=== PATIENT | female | born 1950 | race Caucasian/White ===

== ENCOUNTER 2018-05-12 13:20 | Outpatient (REF) | payer OTHER, SELFPAY | END 2018-05-12 13:40 | LOC: NCHCN 13:20 | PROVIDERS: Visit Provider Family Medicine | DX: Z85.43 Personal history of malignant neoplasm of ovary (principal) | CPT/HCPCS: 86304 ==

== ENCOUNTER 2018-09-27 10:28 | Outpatient (REF) | payer OTHER, SELFPAY ==
[2018-09-27 21:32] LABS: Abs Immature Grans 0.03 k/cumm (0.0-0.09); Absolute Basophil Count 0.05 k/cumm (0.0-0.2); Absolute Lymphocyte Count 1.94 k/cumm (1.2-3.4); Absolute Monocyte Count 0.68 k/cumm (0.11-0.7); Basophils % 0.5; Eosinophils % 1.1; HCT 42.6 % (36.0-46.0); HGB 13.8 g/dL (12.0-15.5); Immature Grans % 0.3; Lymphocytes % 20.9; Mean Corp. HGB Concentration 32.4 g/dL (32.0-36.0); Mean Corpuscular Hemoglobin 29.7 pg (27.0-33.0); Mean Corpuscular Volume 91.6 fL (80-95); Monocytes % 7.3; Neutrophils % 69.9; Platelet Count 240 x1000/uL (130-400); RBC 4.65 m/cumm (4.00-5.20); RBC Distribution Width 13.2 % (11.7-14.6)
[2018-09-27 21:46] LABS: Iron 79 ug/dL (50-175); Total Iron Binding Capacity 273 ug/dL (250-450); Transferrin Sat 29 % (15-50)
[2018-09-27 21:58] LABS: ALT 33 U/L (12-78); AST 16 U/L (15-37); Albumin 3.9 g/dL (3.4-5.0); Alkaline Phosphatase 58 U/L (46-116); Anion Gap 10.3 mmol/L (3-11); BUN 18 mg/dL (7-18); Bilirubin, Total 0.3 mg/dL (0.2-1.0); CO2 28.7 mmol/L (21.0-32.0); CREATININE 1.09 mg/dL (0.55-1.02); Calcium 9.2 mg/dL (8.5-10.1); Chloride 104 mmol/L (98-107); Cholesterol 235 mg/dL (50-200); Estimated GFR 49.62 (mL/min/1.73m2); Ferritin 59 ng/mL (8-388); Glucose 82 mg/dL (70-100); HDL Cholesterol 72 mg/dL (40-60); LDL CHOLESTEROL 142 mg/dL (<100); Magnesium 1.9 mg/dL (1.8-2.4); Potassium 4.2 mmol/L (3.5-5.1); Sodium 143 mmol/L (136-145); TSH (W/Ref FT4) 6.46 uIU/mL (0.358-3.74); Total Protein 6.9 g/dL (6.4-8.2); Triglyceride 75 mg/dL (30-150)
[2018-09-29 12:15] LABS: CA 125 12 U/mL (0-30)
== END 2018-09-27 10:48 ==
LOC: NCHCN 10:28
PROVIDERS: PCP Nurse Practitioner; Visit Provider Nurse Practitioner
DX: R42 Dizziness and giddiness (principal); Z85.43 Personal history of malignant neoplasm of ovary; Z13.220 Encounter for screening for lipoid disorders
CPT/HCPCS: 80053; 80061; 83721; 86304; 82728; 83540; 83550; 83735; 84439; 84443; 85025

== ENCOUNTER 2018-10-04 02:26 | Outpatient (CLI) | payer OTHER, SELFPAY ==
--- NOTE | 2018-10-11 08:13 | HOLTER_ITS ---
HOLTER MONITOR DATE OF DICTATION October 09, 2018 TIME OF RECORDING October 04, 2018 DATE OF ANALYSIS October 07, 2018 REFERRING PHYSICIAN Petrona Gupta N.P. INDICATION Dizziness. FINDINGS 1. Baseline sinus rhythm, 46-113 beats per minute, average 67 beats per minute. 2. Rare PAC, 75/2 days, 6 SVT runs, maximally 6 beats, maximally 157 beats per minute, no AF. 3. Rare PVC, 13/2 days, 1 couplet, no VT. 4. No significant pauses. 5. No symptoms recorded. Madisyn Diehl M.D. KOREY/emelyn T- 10/11/2018
== END 2018-10-04 02:46 ==
PROVIDERS: PCP Nurse Practitioner; Visit Provider Nurse Practitioner
DX: R42 Dizziness and giddiness (principal); I49.1 Atrial premature depolarization; I49.3 Ventricular premature depolarization
CPT/HCPCS: 93225

== ENCOUNTER 2018-10-07 08:51 | Outpatient (CLI) | payer OTHER, SELFPAY | END 2018-10-07 09:11 | PROVIDERS: PCP Nurse Practitioner; Visit Provider Nurse Practitioner | DX: R42 Dizziness and giddiness (principal); I49.1 Atrial premature depolarization; I49.3 Ventricular premature depolarization | CPT/HCPCS: 93226 ==

== ENCOUNTER 2018-10-09 21:35 | Outpatient (CLI) | payer OTHER, SELFPAY | END 2018-10-09 21:55 | PROVIDERS: PCP Nurse Practitioner; Referring Provider Nurse Practitioner; Visit Provider Internal Medicine Cardiovascular Disease | DX: R42 Dizziness and giddiness (principal); I49.1 Atrial premature depolarization; I49.3 Ventricular premature depolarization | CPT/HCPCS: 93227 ==

== ENCOUNTER 2018-12-09 10:33 | Outpatient (REF) | payer OTHER, SELFPAY ==
[2018-12-09 13:25] LABS: HGB 12.3 g/dL (12.0-15.5); Mean Corp. HGB Concentration 31.5 g/dL (32.0-36.0); Mean Corpuscular Hemoglobin 29.3 pg (27.0-33.0); Mean Corpuscular Volume 92.9 fL (80-95); Platelet Count 231 x1000/uL (130-400); RBC Distribution Width 13.2 % (11.7-14.6); White Blood Cell Count 4.15 k/cumm (4.4-10.8)
[2018-12-09 13:30] LABS: ALT 29 U/L (12-78); AST 21 U/L (15-37); Albumin 3.4 g/dL (3.4-5.0); Alkaline Phosphatase 49 U/L (46-116); Anion Gap 8.5 mmol/L (3-11); BUN 16 mg/dL (7-18); Bilirubin, Total 0.4 mg/dL (0.2-1.0); CO2 26.5 mmol/L (21.0-32.0); CREATININE 0.94 mg/dL (0.55-1.02); Calcium 8.6 mg/dL (8.5-10.1); Chloride 106 mmol/L (98-107); Cholesterol 219 mg/dL (50-200); Estimated GFR 58.87 (mL/min/1.73m2); Glucose 96 mg/dL (70-100); HDL Cholesterol 72 mg/dL (40-60); LDL CHOLESTEROL 136 mg/dL (<100); Potassium 4.4 mmol/L (3.5-5.1); Sodium 141 mmol/L (136-145); Total Protein 6.1 g/dL (6.4-8.2); Triglyceride 56 mg/dL (30-150)
[2018-12-10 10:08] LABS: CA 125 9 U/mL (0-30)
== END 2018-12-09 10:53 ==
LOC: NCHCN 10:33
PROVIDERS: PCP Family Medicine; Visit Provider Family Medicine
DX: M79.7 Fibromyalgia (principal); Z13.6 Encounter for screening for cardiovascular disorders; Z85.43 Personal history of malignant neoplasm of ovary; Z15.01 Genetic susceptibility to malignant neoplasm of breast
CPT/HCPCS: 80053; 80061; 83721; 85027; 86304

== ENCOUNTER 2019-01-06 00:53 | Outpatient (CLI) | payer OTHER, SELFPAY ==
--- NOTE | 2019-01-06 12:37 | DI.MAMMO_ITS ---
SYMPTOMS/DIAGNOSIS: SCREENING, GENETIC SUSCEPTIBILITY TO MALIGNANT NEOPLASM OF BREAST, Z15.01 MAMMOGRAMS: Mammograms were interpreted according to the usual protocol including computer analysis with CAD system, tomosynthesis and C view imaging. The breast tissue is composed of scattered fibroglandular densities. There is no dominant mass. There are no suspicious calcifications and there has been no significant interval change when compared with prior images. SUMMARY: No evidence of malignancy, category 1. Yearly screening mammography is recommended. Breast density category B. SA ASSESSMENT OF FINDINGS: Negative. Category 1. Patient will receive a letter notifying them of these results. BI-RADS category B. There are scattered areas of fibroglandular density.
== END 2019-01-06 01:13 ==
PROVIDERS: PCP Nurse Practitioner Family; Visit Provider Nurse Practitioner Family
DX: Z12.31 Encounter for screening mammogram for malignant neoplasm of breast (principal); Z15.01 Genetic susceptibility to malignant neoplasm of breast
CPT/HCPCS: 77063; 77067

== ENCOUNTER 2019-06-14 10:07 | Outpatient (REF) | payer OTHER, SELFPAY ==
[2019-06-14 13:00] LABS: TSH (W/Ref FT4) 6.11 uIU/mL (0.36-3.74)
[2019-06-14 13:19] LABS: FREE T4 0.79 ng/dL (0.76-1.46)
[2019-06-15 11:32] LABS: CA 125 12 U/mL (0-30)
== END 2019-06-14 10:27 ==
LOC: NCHCN 10:07
PROVIDERS: PCP Nurse Practitioner Family; Visit Provider Family Medicine
DX: Z85.43 Personal history of malignant neoplasm of ovary (principal); Z15.01 Genetic susceptibility to malignant neoplasm of breast; E03.9 Hypothyroidism, unspecified
CPT/HCPCS: 86304; 84439; 84443

== ENCOUNTER 2019-09-29 11:47 | Outpatient (REF) | payer OTHER, SELFPAY | END 2019-09-29 12:07 | LOC: NCHCN 11:47 | PROVIDERS: PCP Nurse Practitioner Family; Visit Provider Nurse Practitioner Family | DX: E03.9 Hypothyroidism, unspecified (principal) | CPT/HCPCS: 84443 ==

== ENCOUNTER 2019-10-20 11:21 | Day surgery (SDC) | payer OTHER, SELFPAY ==
[2019-10-20 11:26] VITALS: BP 122/66; PULSE 72; RESP 18; TEMP 36.2; O2SAT 100
--- NOTE | 2019-10-20 11:38 | ED.GENADUL_ITS ---
Discharge Plan Disposition Patient Disposition: [facility] DAY SURGERY UNIT Condition: Good Discharge Details Chief Complaint: Orthopedic Clinical Impression: Closed fracture of right wrist Primary Care Provider: Helen Simeon ED Provider: Jorge Helms Home Meds and New Rx's Prescriptions: No Action ibuprofen 600 MG tablet 600 mg PO Q6H PRN RF: 0 conjugated estrogens [Premarin] 45 GM cream 1 ea Topical PRN PRNRF: 0 alendronate [Fosamax] 70 mg Tablet 30 mg PO RF: 0 Medical Decision Making 69-year-old female slipped on icy slope, landing on outstretched hand. She presents with right wrist deformity. She is did not have any other injury and her review of systems is unremarkable. Her exam reveals normal pulse, motor, sensory exam with obvious deformity of the right distal radius. Patient had ibuprofen prior to transport. Ice and splint applied, patient referred for x-ray. She has a closed, comminuted intra-articular fracture of the distal radius and ulnar styloid fracture. Case discussed with on-call orthopedist, Dr. Hickman who will attend to the patient in day surgery for close reduction. HPI General Mode of arrival: ambulatory . Date/Time Provider Initiated Documentation: 10/20/19 11:27 . Information obtained by: patient . History of Present Illness 69 year old F presents to the emergency department with the chief complaint of Fall and right wrist pain, no other injury, described as moderate, Quality is described as dull, and is localized to the right and upper extremity. Patient reports no radiation. Patient started experiencing this minute(s) and it has been constant. Rest improves symptom(s), Movement worsens symptoms . Patient notes no other symptoms.; denies chest pain, headaches, syncope and weakness. Patient did receive the following treatments prior to arrival, cold therapy and splint Related Data Home Medications Medication Instructions Recorded Confirmed conjugated estrogens [Premarin] 1 ea TOPICAL PRN PRN 06/08/13 09/01/14 ibuprofen 600 mg PO Q6H PRN tab-cap 05/01/17 alendronate [Fosamax] 30 mg PO 10/20/19 Allergies Allergy/AdvReac Type Severity Reaction Status Date / Time clindamycin HCl Allergy Intermediate Skin Rash Unverified 05/22/17 10:50 [From Cleocin] Lincosamides Allergy Unknown Unverified 05/22/17 10:50 General Stated Complaint: Orthopedic ELIOT: 4 Review of Systems Narrative: No loss of consciousness. No headache, no neck pain, no back or chest pain. 6 systems reviewed and otherwise negative. No numbness or tingling. [facility] Social History Smoking/Tobacco Use Status: Never Drug use: Never Substance use type: does not use Do you feel safe at home: Yes Do you feel safe in your relationship?: Yes Exam Narrative Exam Narrative: GEN: awake, alert, oriented 3. Pleasant, well groomed, interactive. HEAD: Normocephalic, atraumatic ENT: Mucous membranes moist, oropharynx unremarkable, External ear exam unremarkable EYES: PERRL, EOMI NECK: Full ROM, no TAYLOR, no menigismus, nontender back: Nontender CHEST/RESP: Nontender, clear to auscultation bilateral, no wheeze/rhonchi/rales CARDIOVASCULAR: RRR, no murmur, rub sue. 2+ Rad pulse bilateral EXT: Right distal radius mild dorsal deformity, tenderness to palpation. Patient able to demonstrate normal movement by making the okay sign, crossing long finger over index, touching thumb to pinky. Sensation intact throat Neuro: Grossly normal neurologic exam, conversant, interactive. Psych: Speech fluent, thoughts congruent, affect normal Course Vital Signs Vital signs: Vital Signs Temperature 36.2 C L 10/20/19 11:26 Pulse 72 10/20/19 11:26 Respiratory Rate 18 10/20/19 11:26 Blood Pressure 122/66 10/20/19 11:26 Pulse Oximetry 100 10/20/19 11:26 Temperature 36.2 C L 10/20/19 11:26 Temperature Source Tympanic 10/20/19 11:26 Pulse 72 10/20/19 11:26 Respiratory Rate 18 10/20/19 11:26 Respiratory Effort Non-Labored 10/20/19 11:28 Blood Pressure 122/66 10/20/19 11:26 Blood Pressure Position Sitting 10/20/19 11:26 Pulse Oximetry 100 10/20/19 11:26 Oxygen Delivery Method Room Air 10/20/19 11:26 Oxygen Flow Rate 0 10/20/19 11:26 Pain Level 9 10/20/19 11:26
--- NOTE | 2019-10-20 11:56 | DI.RAD_ITS ---
EXAM: XR WRIST RT COMPLETE CLINICAL HISTORY: FALL, WRIST PAIN. TECHNIQUE: 2D digital imaging was performed. COMPARISON: No exams were available for comparison FINDINGS: There is a comminuted fracture of the distal radius. A component of the fracture extends transversely through the metaphysis. There is a coronally oriented fracture extending to the articular surface. T here is some dorsal angulation. There is some separation and mild depression at the articular surface . The ulnar styloid is also fractured and mildly displaced. Degenerative changes are seen in the 1st carpal metacarpal joint. BONES: No acute fracture is present. No bony destructive lesion is seen. JOINTS: The carpal bones are normally aligned. SOFT TISSUE: Normal. IMPRESSION: Comminuted intra-articular fracture of the distal radius and ulnar styloid fracture. DATA REPOSITORY: RADIATION DOSE DELIVERED:
[2019-10-20] MEDS: Normal Saline Flush 10 ML SYR IVP (13:00)
[2019-10-20 13:21] VITALS: BP 128/62; PULSE 58; RESP 18; TEMP 36.5; O2SAT 99
[2019-10-20 14:46] VITALS: BP 122/64; PULSE 68; RESP 17; TEMP 36.4; O2SAT 98
[2019-10-20 15:00] VITALS: BP 122/64; PULSE 68; RESP 17; TEMP 36.4; O2SAT 98
--- NOTE | 2019-10-20 16:25 | DI.RAD_ITS ---
EXAM: XR WRIST RT LIMITED CLINICAL HISTORY: RIGHT WRIST FRACTURE. TECHNIQUE: 2D digital imaging was performed. COMPARISON: XR WRIST RT COMPLETE from 10/20/2019 FINDINGS: BONES: The distal radial fracture has been reduced with alignment near anatomic. The ulnar styloid p rocess fracture appears stable. The patient's wrist is in a cast. No bony destructive lesion is see n. JOINTS: The carpal bones are normally aligned. SOFT TISSUE: Normal. IMPRESSION: Reduced distal radial fracture. Stable ulnar styloid process fracture. DATA REPOSITORY: RADIATION DOSE DELIVERED:
--- NOTE | 2019-10-20 16:25 | W.PM.DSUDISC ---
Discharge Plan Disposition Patient Disposition: HOME Condition: Stable Discharge Details Chief Complaint: Orthopedic Clinical Impression: Closed fracture of right wrist Reason For Visit: Right wrist fracture Attending Provider: Lucas Hickman Primary Care Provider: Helen Simeon ED Provider: Jorge Helms Home Meds and New Rx's Prescriptions: New oxycodone 5 mg tablet 5 - 10 mg PO Q4H PRN (Reason: moderate to severe pain) Qty: 5 RF: 0 oxycodone 5 mg tablet 5 mg PO Q4H PRN (Reason: moderate to severe pain) Qty: 5 RF: 0 Continued ibuprofen 600 MG tablet 600 mg PO Q6H PRN RF: 0 Premarin 45 GM cream 1 ea Topical PRN PRNRF: 0 alendronate [Fosamax] 70 mg Tablet 30 mg PO RF: 0 levothyroxine 50 mcg Tablet DAILY AM RF: 0 ibuprofen [Advil] 200 MG tablet 600 - 800 mg PO BID Qty: 30 RF: 0 Discharge Instructions Additional Instructions: Surgery: Right wrist closed reduction Activity: Nonweightbearing in splint at all times. Recommend elevation at the level of the heart to minimize swelling and discomfort. Daily range of motion remember to wiggle your thumb and all fingers to prevent stiffness and encourage circulation. Prescriptions: Ibuprofen/Motrin [id number] as needed Oxycodone 5 mg take 1 every 4-6 hours as needed for severe pain You may use [id number] Tylenol (acetaminophen) as needed for mild pain. These pain medications may be taken all at once or in different combinations as needed. Also, recommend Colace (docusate) as a stool softener as surgery and pain medicine cause constipation. Dressings: Leave splint and dressing in place until follow-up. Keep clean and dry at all times. Follow-up: 10-[address] Hickman at [facility] orthopedics Please call the office during business hours with any questions or concerns. Let us know right away if you develop any redness, drainage, fevers, chest pain, or trouble breathing. Do not drink alcohol or drive for at least 24 hours after anesthesia. Stand Alone Forms: Rossana Givens (LETYU) Referrals: Lucas Hickman MD [ [facility] STAFF PHYSICIAN] - Discharge Orders Discharge Orders: Discharge Order (Routine); Ordered 10/20/19 Ordered By: Lucas Hickman DS: Diagnosis Discharge Diagnosis (1) Closed fracture of right wrist: Status: Acute
--- NOTE | 2019-10-20 16:53 | ROE_ITS ---
Date of service: 10/20/19 Time of Service: 16:53 Operative Note Operative Note DATE OF PROCEDURE: 10/20/19 PRE-OP DIAGNOSIS: Right displaced distal radius fracture Right ulnar styloid fracture POST-OP DIAGNOSIS: same PROCEDURE: Right distal radius closed reduction with manipulation and splinting SURGEON: Lucas Hickman ROUTE RIDER SUPERVISOR: None None ANESTHESIA: regional ESTIMATED BLOOD LOSS: 0 COMPLICATIONS: None Patient was transported to: PACU Patient's condition: stable Indications: Please see complete medical record for details. Procedure Description: The patient was taken to the recovery room and t regional anesthesia was induced. Preoperative antibiotics were omitted. The correct patient, procedure, and side of the procedure were all verified prior to beginning the procedure. A plaster sugar tong splint was laid out. The patient's block was tested she was found to have good analgesia about the distal radius. Using my thigh for traction her elbow was was brought around my thigh and 90 degrees of flexion and the deformity was slightly exaggerated and then gently corrected using a volarly directed force as well as direct pressure over the distal fracture. There is a palpable confirmation of proper reduction. The reduction was held and maintained carefully compared with contralateral wrist and felt to look anatomic. A well molded with a three-point mold plaster sugar tong splint was appropriately placed for immobilization and maintenance of reduction. Postoperative x-rays confirmed excellent reduction of the previously significantly dorsally angulated distal radius fracture. The patient tolerated procedure well was transferred to day surgery unit in stable condition.
--- NOTE | 2019-10-20 17:02 | OCONE_ITS ---
Date of service: 10/20/19 Time of Service: 16:57 History of Present Illness History of Present Illness Chief Complaint: Right wrist pain Narrative: Chief Complaint: Right wrist pain HPI: 69-year-old female status post mechanical slip and fall on the ice today onto outstretched right wrist. Significant sudden onset severe right wrist pain and deformity. Presents emergency department found to have angulated space distal radius fracture. No pre-existing wrist pain. Did not hit her head or lose consciousness. No other orthopedic complaints at this time. PMH: Negative allergies: Clindamycin may cause rash FH: non-contributory SH: hand dominance: Right occupation: Retired smoke cigarettes: No Consult Reason Right distal radius reduction Assessment and Plan Assessment and plan (1) Closed fracture of right wrist: Status: Acute Assessment and plan: 69-year-old female with right dorsally angulated displaced distal radius and ulnar styloid fractures sustained from mechanical fall today Decision to proceed with closed reduction under regional anesthesia today The risks, benefits, and alternatives were thoroughly discussed. Patient was counseled regarding pain management, expected postoperative course, and recovery timeline. All questions were answered. Informed consent was obtained. The patient and her agree and understand treatment plan. Follow up 10-14 days after surgery. Will call if any changes or concerns. Qualifiers: Encounter type: initial encounter Qualified Code(s): S62.101A - Fracture of unspecified carpal bone, right wrist, initial encounter for closed fracture Review of Systems Constitutional Constitutional: Denies chills and Denies fever(s) Eyes Eyes: Denies diplopia and Denies loss of vision ENT Ears, Nose, Mouth, and Throat: Denies dental pain and Denies other (cavities) Cardiovascular Cardiovascular: Denies chest pain with activity, Denies irregular heart rhythm and Denies dyspnea Respiratory Respiratory: Denies cough and Denies dyspnea Gastrointestinal Gastrointestinal: Denies nausea and Denies vomiting Musculoskeletal Musculoskeletal: Reports as per HPI Integumentary/Breasts Skin/Breast: Denies rash and Denies wounds Neurologic Neurologic: Reports as per HPI and Denies loss of vision Psychiatric Psychiatric: Denies anxiety and Denies depression Hematologic/Lymphatic Hematologic/Lymphatic: Denies easy bleeding and Denies easy bruising Allergic/Immunologic Allergic/Immunologic: Reports as per HPI [facility] Social History Smoking/Tobacco Use Status: Never Drug use: Never Substance use type: does not use Do you feel safe at home: Yes Do you feel safe in your relationship?: Yes Exam Const General: cooperative, comfortable and no acute distress Orientation: alert, awake and not confused Limitations: mental status not altered and no language barrier HENMT Head: normocephalic and atraumatic Neck Neck: normal visual inspection and full ROM Resp Effort & Inspection: normal respiratory effort, able to speak in complete sentences, no audible wheezes and no grunting General: deferred Skin General skin exam: no rashes or lesions noted Neuro General: patient alert, patient awake and patient oriented x3 Cognition: normal cognition Speech: speech normal Extrem Other: Right wrist: Skin intact. All compartments soft. 2+ radial pulse regular rate and rhythm Dorsal prominence deformity about the distal radius Demonstrates intact motor flexor extenders thumb and all digits Prior to regional anesthesia block denies any numbness or tingling paresthesias. At this time has moderate paresthesias distally. Psych Appearance: grossly normal Mental Status: mental status grossly normal Speech and Movement: speech and movement normal Affect: normal affect Attitude: cooperative Results Last Vital Signs Temp 97.2 F L 10/20/19 11:26 Pulse 72 10/20/19 11:26 Resp 18 10/20/19 11:26 BP 122/66 10/20/19 11:26 Pulse Ox 100 10/20/19 11:26 Imaging Imaging Studies: Right wrist x-rays and report independently reviewed: Extra- articular approximately 30 degrees dorsally angulated distal radius fracture with ulnar styloid fracture
== END 2019-10-20 17:10 | disposition home or self-care (01) ==
LOC: ER 14:25 → DSU 14:53
PROVIDERS: Emergency Provider Emergency Medicine; PCP Nurse Practitioner Family; Visit Provider Student in an Organized Health Care Education/Training Program
PROC: 0PSHXZZ Reposition Right Radius, External Approach (ICD-10-PCS; CPT 25605; principal; 2019-10-20 15:00)
DX: S52.591A Other fractures of lower end of right radius, initial encounter for closed fracture (principal); S52.614A Nondisplaced fracture of right ulna styloid process, initial encounter for closed fracture; W00.0XXA Fall on same level due to ice and snow, initial encounter
CPT/HCPCS: 25605; 99254; 99285; 73100; 73110; 99284

== ENCOUNTER 2019-11-01 11:31 | Outpatient (CLI) | payer OTHER, SELFPAY ==
--- NOTE | 2019-11-01 10:42 | DI.RAD_ITS ---
EXAM: XR WRIST RT LIMITED CLINICAL HISTORY: Follow up TECHNIQUE: COMPARISON: XR WRIST RT LIMITED from 10/20/2019 FINDINGS: Two views were obtained. Note is again made of previously described fractures distal radius and ulna r styloid with no gross interval change in alignment the fracture fragments comparison with previous examination of October 19. The wrist is in a splint. IMPRESSION:
== END 2019-11-01 11:51 ==
PROVIDERS: PCP Nurse Practitioner Family; Visit Provider Student in an Organized Health Care Education/Training Program
DX: S52.511D Displaced fracture of right radial styloid process, subsequent encounter for closed fracture with routine healing (principal); S52.611D Displaced fracture of right ulna styloid process, subsequent encounter for closed fracture with routine healing
CPT/HCPCS: 73100

== ENCOUNTER 2019-11-29 10:22 | Outpatient (CLI) | payer OTHER, SELFPAY ==
--- NOTE | 2019-11-29 10:00 | DI.RAD_ITS ---
EXAM: XR WRIST RT COMPLETE CLINICAL HISTORY: f/u fracture TECHNIQUE: 2D digital imaging was performed. COMPARISON: XR WRIST RT LIMITED from 11/01/2019 FINDINGS: The cast has been removed. There is increased callus formation at the distal radial fracture site in dicates some interval healing. The ulnar styloid fracture is unchanged in position. Degenerative ch anges of 1st carpometacarpal joint are again noted. IMPRESSION: Healing fracture of the distal radius.
== END 2019-11-29 10:42 ==
PROVIDERS: PCP Nurse Practitioner Family; Visit Provider Student in an Organized Health Care Education/Training Program
DX: S52.511D Displaced fracture of right radial styloid process, subsequent encounter for closed fracture with routine healing (principal); S52.611D Displaced fracture of right ulna styloid process, subsequent encounter for closed fracture with routine healing; M18.11 Unilateral primary osteoarthritis of first carpometacarpal joint, right hand
CPT/HCPCS: 73110

== ENCOUNTER 2019-12-30 12:48 | Outpatient (REF) | payer OTHER, SELFPAY ==
[2020-01-02 10:58] LABS: CA 125 11 U/mL (<30)
== END 2019-12-30 13:08 ==
LOC: NCHCN 12:48
PROVIDERS: PCP Nurse Practitioner Family; Visit Provider Nurse Practitioner Family
DX: Z85.43 Personal history of malignant neoplasm of ovary (principal)
CPT/HCPCS: 86304

== ENCOUNTER 2020-01-10 10:19 | Outpatient (CLI) | payer OTHER, SELFPAY ==
--- NOTE | 2020-01-10 10:00 | DI.RAD_ITS ---
EXAM: XR WRIST RT LIMITED CLINICAL HISTORY: fu fracture TECHNIQUE: COMPARISON: CR XR WRIST RT COMPLETE from 11/29/2019 FINDINGS: Two views were obtained. Previously described fracture of the distal radius and ulnar styloid again noted, no interval change in alignment in comparison with examination of November 28. The radial frac ture appears essentially healed, ulnar styloid fracture is un healed. IMPRESSION:
== END 2020-01-10 10:39 ==
PROVIDERS: PCP Nurse Practitioner Family; Referring Provider Nurse Practitioner Family; Visit Provider Student in an Organized Health Care Education/Training Program
DX: S52.511D Displaced fracture of right radial styloid process, subsequent encounter for closed fracture with routine healing (principal); S52.611D Displaced fracture of right ulna styloid process, subsequent encounter for closed fracture with routine healing
CPT/HCPCS: 73100

== ENCOUNTER 2020-01-26 03:16 | Outpatient (CLI) | payer OTHER, SELFPAY ==
--- NOTE | 2020-01-26 12:33 | DI.MAMMO_ITS ---
EXAM: MAMMO SCREENING CLINICAL HISTORY: SCREENING, Z12.39 TECHNIQUE: Mammograms were interpreted according to the usual protocol including computer analysis w ith CAD system, tomosynthesis and C-view imaging. COMPARISON: 2009 through 2018 FINDINGS: The breasts are composed of scattered fibroglandular densities, Breast Density category B. No suspicious masses or suspicious microcalcifications are seen. No skin thickening or abnormal axillary lymph nodes are seen. There has been no significant change from prior exams. IMPRESSION: BI-RADS Category 1 - Negative Yearly screening mammography is recommended. Breast Density Category B, scattered fibroglandular densities.
--- NOTE | 2020-01-26 13:09 | DI.DEXA_ITS ---
EXAM: XR DEXA BONE DENSITY W/WO JOSIE CLINICAL HISTORY: OSTEOPOROSIS, M81.0 TECHNIQUE: H[employer] Horizon C densitometer. COMPARISON: DX DEXA BONE DENSITY WITH JOSIE from 06/02/2017 FINDINGS: The lateral view of the thoracic and lumbar spine shows no evidence of compression fractures. There is eccenuation of the normal thoracic kyphosis secondary to degenerative disc changes. The bone mineral density measurements of the lumbar spine correspond to a total T-score of -2.7, cons istent with osteoporosis. There has been a 3.7 percent increase in spinal bone density when compared with 2017 but an overall 3.9 percent decrease when compared with the baseline exam of 2004. The bone mineral density measurements of the left hip correspond to a total T-score of -1.8 and a fem oral neck T-score of -2.3, consistent with osteopenia. This represents a 5.4 percent increase when co mpared with 2017 and not significantly changed from the 2005 exam. The forearm was not scanned due to history of previous fracture. IMPRESSION: Overall stable osteopenia of the left hip. Osteopenia of the lumbar spine with mild decrease in ayo ne density when compared with baseline exam.
== END 2020-01-26 03:36 ==
PROVIDERS: PCP Nurse Practitioner Family
DX: Z12.31 Encounter for screening mammogram for malignant neoplasm of breast (principal); M85.88 Other specified disorders of bone density and structure, other site; M81.0 Age-related osteoporosis without current pathological fracture
CPT/HCPCS: 77063; 77067; 77080

== ENCOUNTER 2020-08-09 12:32 | Outpatient (REF) | payer OTHER, SELFPAY ==
[2020-08-09 22:55] LABS: Calculated LDL 168 mg/dL (<100); Cholesterol 267 mg/dL (<200); HDL Cholesterol 87 mg/dL (40-60); TSH 4.27 uIU/mL (0.36-3.74); Triglyceride 64 mg/dL (<150)
[2020-08-09 23:23] LABS: FREE T4 0.97 ng/dL (0.76-1.46)
[2020-08-13 09:28] LABS: CA 125 13 U/mL (<30)
== END 2020-08-09 12:52 ==
LOC: NCHCN 12:32
PROVIDERS: PCP Nurse Practitioner Family; Visit Provider Nurse Practitioner Family
DX: E03.9 Hypothyroidism, unspecified (principal); E78.5 Hyperlipidemia, unspecified; Z15.01 Genetic susceptibility to malignant neoplasm of breast
CPT/HCPCS: 80061; 86304; 84439; 84443

== ENCOUNTER 2021-01-29 01:34 | Outpatient (CLI) | payer OTHER, SELFPAY ==
--- NOTE | 2021-01-29 | DI.MAMMO_ITS ---
Exam(s) MAMMO SCREENING EXAM: MAMMO SCREENING CLINICAL HISTORY: SCREENING,Z12.31,FAMILY H/O BREAST CA TECHNIQUE: Mammograms were interpreted according to the usual protocol including computer analysis w [employer] CAD system, tomosynthesis and C-view imaging. COMPARISON: FINDINGS: The breasts are of moderate density with fairly symmetrical distribution of fibroglandular tissue. N o dominant mass or clumped microcalcification is identified in either breast. The current examinatio n is compared with previous examinations including January 2020 and there is question of increased promi nence of a focal area of asymmetric density with a vaguely nodular contour projected in the lateral c entral portion of right breast on CC view. Additionally, on the MLO view, there are a couple of ques tionable areas of increased asymmetric radiodensity projected in the central superior portion of the breast. Additional evaluation is with spot compression views recommended to evaluate these findings, breast ultrasound may be indicated as well. No other significant change seen. IMPRESSION: Additional mammographic views of the right breast requested as described above. Breast ultrasound ma y be indicated as well depending on the results of the additional mammographic views. BI-RADS Category 0 - Assessment Incomplete: Need additional imaging evaluation Breast Density - Category B - Scattered areas of fibroglandular density
== END 2021-01-29 01:54 ==
DX: Z12.31 Encounter for screening mammogram for malignant neoplasm of breast (principal); R92.8 Other abnormal and inconclusive findings on diagnostic imaging of breast; Z80.3 Family history of malignant neoplasm of breast
CPT/HCPCS: 77063; 77067

== ENCOUNTER 2021-02-07 09:12 | Outpatient (REF) | payer OTHER, SELFPAY ==
[2021-02-07 13:47] LABS: Calculated LDL 143 mg/dL (<100); Cholesterol 231 mg/dL (<200); HDL Cholesterol 75 mg/dL (40-60); TSH (W/Ref FT4) 0.89 uIU/mL (0.36-3.74); Triglyceride 69 mg/dL (<150)
[2021-02-08 10:42] LABS: CA 125 10 U/mL (<30)
== END 2021-02-07 09:13 | disposition home or self-care (01) ==
LOC: NCHCN 09:12
PROVIDERS: Visit Provider Family Medicine
DX: E78.5 Hyperlipidemia, unspecified (principal); E02 Subclinical iodine-deficiency hypothyroidism; Z85.43 Personal history of malignant neoplasm of ovary
CPT/HCPCS: 80061; 86304; 84443

== ENCOUNTER 2021-02-08 02:42 | Outpatient (CLI) | payer OTHER, SELFPAY ==
--- NOTE | 2021-02-08 | DI.US_ITS ---
Exam(s) MG MAMMO SCREEN CALL BACK UNI US BREAST RT LIMITED EXAM: MG MAMMO SCREEN CALL BACK UNI CLINICAL HISTORY: F/U ABNL MAMMO, ASYMMETRIC DENSITY RT BREAST TECHNIQUE: Mammograms were interpreted according to the usual protocol including computer analysis w ith CAD system, tomosynthesis and C-view imaging. COMPARISON: FINDINGS: Additional mammographic views of the right breast and right breast ultrasound are interpreted conjunc tion. These examinations were obtained to evaluate areas of focal asymmetric density in the upper ou ter quadrant of the right breast seen on recent mammogram. Additional mammographic views fail to donny w a discrete mass. Breast ultrasound shows no evidence of a mass or cyst. IMPRESSION: No specific evidence of malignancy at this time. Follow-up unilateral right breast mammogram recomme nded in 6 months. BI-RADS Category 3 - 6 month - Probably Benign Finding: Recommend follow-up mammography in 6 months Breast Density - Category B - Scattered areas of fibroglandular density
== END 2021-02-08 03:02 ==
DX: Z12.31 Encounter for screening mammogram for malignant neoplasm of breast (principal); N64.89 Other specified disorders of breast; R92.8 Other abnormal and inconclusive findings on diagnostic imaging of breast
CPT/HCPCS: 76642; 77063; 77067

== ENCOUNTER 2021-03-21 00:40 | Emergency (ER) | payer OTHER, SELFPAY ==
--- NOTE | 2021-03-21 00:30 | RT.EKG_ITS ---
APPROVED REPORT Exam: Resting ECG Reason for Exam: chest pain Patient Location: E HR:62 bpm ECG Measurements Heart Rate 62 AXIS AL 146 P 50 QRSd 92 QRS 45 QT 446 T 16 QTc 454 Conclusion Sinus rhythm...normal P axis, V-rate 60- 99
--- NOTE | 2021-03-21 00:45 | DI.RAD_ITS ---
Exam(s) XR CHEST 2V PA LATERAL EXAM: XR CHEST 2V PA LATERAL CLINICAL HISTORY: chest pain TECHNIQUE: 2D digital imaging was performed. COMPARISON: No exams were available for comparison FINDINGS: MEDIASTINUM: Normal. HEART: Normal. PULMONARY VASCULATURE: Normal. LUNGS: Clear. PLEURAL SPACE: No pleural effusion or pneumothorax. BONE:Within normal limits for the patient's age. OTHER FINDINGS:Normal. IMPRESSION: No acute pulmonary findings. DATA REPOSITORY: RADIATION DOSE DELIVERED:
[2021-03-21 00:50] VITALS: BP 137/77; PULSE 60; RESP 18; TEMP 36.5; O2SAT 98
--- NOTE | 2021-03-21 00:52 | ED.GENADUL_ITS ---
Discharge Plan Disposition Patient Disposition: AGAINST MEDICAL ADVICE Condition: Stable Discharge Details Clinical Impression: Chest pain Primary Care Provider: Helen Simeon ED Provider: Israel Persaud Home Meds and New Rx's Prescriptions: Continued acetaminophen 500 mg capsule 500 mg PO Q6H PRNRF: 0 Premarin 45 GM cream 1 ea Topical PRN PRNRF: 0 levothyroxine 50 mcg Tablet 75 mcg PO DAILY AM RF: 0 alendronate [Fosamax] 70 mg tablet 35 mg PO DAILY RF: 0 ibuprofen [Advil] 200 MG tablet 600 - 800 mg PO BID PRNRF: 0 Discharge Instructions Instructions: Chest Pain (ED) Additional Instructions: your initial blood work and ecg were unremarkable. You did not want to stay for repeat blood work and ecg follow up with your primary care provider as soon as possible if you feel more ill, have worsening pain or difficulty breathing return to the emergency department Medical Decision Making 70 yo female with no known cardiac disease who denies history of htn, hld, DM, smoking family history of cad, who comes in with chief complaint of chest pain. She was well all day yesterday and went to bed feeling fine. She woke up with an ache in her chest and noticed some discomfort in her neck as well. She took 81mg asa which brought her pain down to a 2/10 on arrival. Denies diaphoresis, n/v, dyspnea. She states she just has a small ache in her anterior chest now that she can barely notice. she denies pressure, and has no pleuritic pain. No upper backpain. She has no pain or swelling in her legs. She is in no distress and appears systemically well on exam. She is speaking in full sentences, caox4. She has normal lung sounds bilaterally, no murmurs, no jvd, normal vascular exam in the extremities with normal sensation and no calf tenderness. Symptoms could be chest wall pain, or esophageal spasm. Her heart score is 2, will obtain troponin. She has no hypoxia, tachycardia, pleuritic pain and no evidence of dvt on exam so doubt PE. No tearing back pain and normal neurovascular exam so dout dissection at this time. patients labs and imaging unremarkable and she is pain free, reading a book in no distress on reevaluation and remains stable. Discussed results with the patient and advised at the minimum we would observe and obtain delta troponin and ecg and observe for symptoms that may make use consider a cat scan. She is declining to stay. She has full capacity to make her own decisions and is clinically sober. She understands why we would want her to stay and if we miss an OK she could become permanently disabled or potentially . She understands this and still doesn't want to stay. She understands that if she changes her mind she can always return and that if she doesn't return she should see her pcp as soon as possible Differential Diagnosis Differential Diagnosis: nstemi, esophageal spasm, chest wall pain Medical Records Medical records reviewed: Yes I reviewed the patient's medical records. Imaging Data Radiologic Study: Attestation: I personally reviewed and interpreted this imaging study as follows: Imaging: X-Ray Radiologist's impression: no acute findings Lab Data Lab results reviewed: Yes I reviewed the patient's lab results. ECG Data Attestation: I personally reviewed and interpreted this ECG (s) as follows: Prior ECG tracings: not available for review Interpretation: sinus rhythm, rate of 60, no acute st t wave ischemic findings HPI General Mode of arrival: wheelchair . Date/Time Provider Initiated Documentation: 03/21/21 00:41 . Limitations to Documentation: no limitations . Information obtained by: patient . History of Present Illness 70 year old F presents to the emergency department with the chief complaint of chest pain, described as mild, with intensity rated at 4. Quality is described as aching, Patient neck. Patient started experiencing this hour(s) (1) and it has been other (improving). other things that improve symptom(s), (81mg asa) No exacerbating factors reported . Patient notes no other symptoms.. Patient did receive the following treatments prior to arrival, Aspirin Related Data Home Medications Medication Instructions Recorded Confirmed Premarin 1 ea TOPICAL PRN PRN 06/08/13 03/21/21 levothyroxine 75 mcg PO DAILY AM 10/20/19 03/21/21 acetaminophen 500 mg capsule 500 mg PO Q6H PRN 11/29/19 03/21/21 alendronate 70 mg tablet 35 mg PO DAILY 01/10/20 03/21/21 ibuprofen [Advil] 600 - 800 mg PO BID PRN 03/21/21 03/21/21 Allergies Allergy/AdvReac Type Severity Reaction Status Date / Time clindamycin HCl Allergy Intermediate Skin Rash Verified 03/21/21 01:07 [From Cleocin] Lincosamides Allergy Unknown Verified 03/21/21 01:07 General ELIOT: 4 Review of Systems All systems reviewed & are unremarkable except as noted in HPI and below Constitutional Constitutional: Denies chills, Denies fever(s) and Denies weakness Cardiovascular Cardiovascular: Denies dyspnea Respiratory Respiratory: Denies cough and Denies dyspnea Gastrointestinal Gastrointestinal: Denies abdominal pain, Denies nausea and Denies vomiting Musculoskeletal Musculoskeletal: Denies joint swelling Neurologic Neurologic: Denies weakness [facility] Social History Smoking/Tobacco Use Status: Never Smoking risk assessment performed?: Yes Alcohol Intake: never Drug use: Never Substance use type: does not use Do you feel safe at home: Yes Do you feel safe in your relationship?: Yes Exam Const General: no acute distress Orientation: alert HENMT Head: normal to inspection Ears: external ears normal General nose exam: external nose normal Mouth: moist mucous membranes Eyes General: appearance normal, both eyes and all related structures Neck Neck: normal visual inspection Chest Chest: normal inspection of the chest Resp Effort & Inspection: normal respiratory effort and able to speak in complete sentences Cardio Rate: regular rate GI Palpation: soft and nontender Skin General skin exam: no rashes or lesions noted Neuro General: patient alert and patient oriented x3 Extrem General: normal to inspection Psych Mental Status: mental status grossly normal
[2021-03-21 01:03] LABS: Abs Immature Grans 0.03 10^3/uL (0.0-0.06); Absolute Basophil Count 0.07 10^3/uL (0.0-0.2); Absolute Eosinophil Count 0.21 10^3/uL (0.0-0.7); Absolute Lymphocyte Count 2.46 10^3/uL (1.2-3.4); Absolute Monocyte Count 0.75 10^3/uL (0.1-0.8); Absolute Neutrophil Count 3.91 10^3/uL (1.2-6.7); Basophils % 0.9; Eosinophils % 2.8; HCT 40.6 % (36.0-46.0); HGB 13.1 g/dL (11.2-15.7); Immature Grans % 0.4; Lymphocytes % 33.1; MCH 29.4 pg (27.0-33.0); MCHC 32.3 % (32.0-36.0); MCV 91.2 fL (80-95); MPV 10.7 fL (8.0-11.0); Monocytes % 10.1; Neutrophils % 52.7; Nucleated RBC 0 %; Platelet Count 265 10^3/uL (130-400); RBC 4.45 10^6/uL (3.93-5.22); RDW 12.3 % (11.7-14.6); RDW-SD 41.1 fL; WBC 7.43 10^3/uL (4.4-10.8)
[2021-03-21] MEDS: Aspirin 81 MG CHEW 243 MG CH (01:04)
[2021-03-21 01:22] LABS: ALT 41 U/L (14-59); AST 15 U/L (15-37); Albumin 3.6 g/dL (3.4-5.0); Alkaline Phosphatase 71 U/L (46-116); Anion Gap 7.3 mmol/L (3-11); BUN 15 mg/dL (7-18); Bilirubin, Total 0.2 mg/dL (0.2-1.0); CO2 26.7 mmol/L (21.0-32.0); Calcium 8.7 mg/dL (8.5-10.1); Chloride 106 mmol/L (98-107); Glucose 112 mg/dL (74-106); Lipase 107 U/L (73-393); Magnesium 2.1 mg/dL (1.8-2.4); Potassium 3.8 mmol/L (3.5-5.1); Sodium 140 mmol/L (136-145); Total Protein 6.5 g/dL (6.4-8.2)
[2021-03-21 01:24] LABS: Troponin I < 0.05 ng/mL (<0.06)
--- NOTE | 2021-03-21 02:15 | DI.VRAD_ITS ---
PROCEDURE INFORMATION: Exam: XR Chest Exam date and time: 03/21/2021 1:00 AM Age: 70 years old Clinical indication: Other: Pain TECHNIQUE: Imaging protocol: XR of the chest. Views: 2 views. COMPARISON: No relevant prior studies available. FINDINGS: Lungs: Unremarkable. No consolidation. Pleural spaces: Unremarkable. No pleural effusion. No pneumothorax. Heart/Mediastinum: Unremarkable. No cardiomegaly. Bones/joints: Unremarkable. IMPRESSION: No acute findings. Dictated and Authenticated by: Israel Dawson MD. Ordering:RADHA Wood MD
[2021-03-21 02:48] VITALS: BP 137/77; PULSE 60; RESP 18; TEMP 36.5; O2SAT 98
== END 2021-03-21 02:22 | disposition left against medical advice (07) ==
LOC: ER 02:14
PROVIDERS: Emergency Provider Emergency Medicine; PCP Nurse Practitioner Family
DX: R07.9 Chest pain, unspecified (principal); Z53.29 Procedure and treatment not carried out because of patient's decision for other reasons
CPT/HCPCS: 36415; 80053; 83690; 93005; 99284; 71046; 83735; 84484; 85025; 85610; 85730; 93010

== ENCOUNTER 2021-08-13 00:53 | Outpatient (CLI) | payer OTHER, SELFPAY ==
--- NOTE | 2021-08-13 09:19 | DI.MAMMO_ITS ---
Exam(s) MG MAMMO DIAGNOSTIC UNI EXAM: MAMMO DIAGNOSTIC UNI CLINICAL HISTORY: DIAGNOSTIC, 6 MO F/U, F/U MAMMO,R92.8. TECHNIQUE: Craniocaudal and mediolateral oblique Full Field Digital Mammography views of the right b reast with Computer Aided Diagnosis followed by Tomosynthesis. COMPARISON: Comparison with prior examinations. FINDINGS: Mammography/Tomosynthesis: Masses/Architectural Distortion: None seen. Microcalcifictions: No suspicious pleomorphic-type are seen. Skin Thickening/Nipple Retraction: None. IMPRESSION: 1. No evidence of malignancy is noted. 2. Unless there is more urgent need, follow-up screening mammography is recommended, as per [place] [employer] guidelines. 3. The findings were discussed with the patient on the date of the examination. BI-RADS Category 1 - Negative Breast Density - Category B - Scattered areas of fibroglandular density Breast density Category C or D implies that the patient has dense breast tissue. Dense breast tissue can make it harder to find cancer on a mammogram. Dense breast tissue is also associated with an incr eased risk of breast cancer. This information about the result of the mammogram report was provided to the patient to raise their awareness. Use this report when you speak with the patient about their risks for breast cancer, which includes their family history. At that time, you may recommend additional screening tests (Ultrasoun d or MRI) as these tests may add significant information. A negative radiographic report should not delay biopsy if a dominant or clinically suspicious mass is present. Up to ten percent of cancers are not identified on mammography. A negative report may reinforce clinical impression. Adenosis and dense breasts may obscure an underlying neoplasm. False positive reports average 6 to 10%. Patient will receive a letter notifying them of these results.
== END 2021-08-13 01:13 ==
PROVIDERS: PCP Nurse Practitioner Family
DX: R92.8 Other abnormal and inconclusive findings on diagnostic imaging of breast (principal); N64.59 Other signs and symptoms in breast
CPT/HCPCS: 77061; 77065; G0279

== ENCOUNTER 2021-08-28 16:31 | Outpatient (REF) | payer OTHER, SELFPAY ==
[2021-08-28 22:09] LABS: HCT 43.7 % (36.0-46.0); HGB 13.4 g/dL (11.2-15.7); MCH 29.2 pg (27.0-33.0); MCHC 30.7 % (32.0-36.0); MCV 95.2 fL (80-95); Platelet Count 250 10^3/uL (130-400); RBC 4.59 10^6/uL (3.93-5.22); RDW 12.9 % (11.7-14.6); RDW-SD 45.7 fL; WBC 5.42 10^3/uL (4.4-10.8)
[2021-08-28 22:41] LABS: Anion Gap 6.2 mmol/L (3-11); BUN 15 mg/dL (7-18); CO2 27.8 mmol/L (21.0-32.0); CREATININE 1.1 mg/dL (0.55-1.02); Calcium 9.8 mg/dL (8.5-10.1); Chloride 107 mmol/L (98-107); Estimated GFR 48.82 (mL/min/1.73m2); Glucose 87 mg/dL (74-106); Sodium 141 mmol/L (136-145); TSH (W/Ref FT4) 0.71 uIU/mL (0.36-3.74)
[2021-08-28 22:55] LABS: Potassium 6.2 mmol/L (3.5-5.1)
[2021-08-30 11:26] LABS: CA 125 14 U/mL (<30)
== END 2021-08-28 16:32 | disposition home or self-care (01) ==
LOC: NCHCN 16:31
PROVIDERS: PCP Nurse Practitioner Family; Visit Provider Nurse Practitioner Family
DX: E03.9 Hypothyroidism, unspecified (principal); M81.0 Age-related osteoporosis without current pathological fracture; Z85.43 Personal history of malignant neoplasm of ovary
CPT/HCPCS: 80048; 85027; 86304; 84443

== ENCOUNTER 2021-08-29 18:49 | Outpatient (REF) | payer OTHER, SELFPAY ==
[2021-08-29 17:17] LABS: Anion Gap 8.3 mmol/L (3-11); BUN 17 mg/dL (7-18); CO2 26.7 mmol/L (21.0-32.0); CREATININE 1.1 mg/dL (0.55-1.02); Calcium 9.2 mg/dL (8.5-10.1); Chloride 104 mmol/L (98-107); Estimated GFR 48.82 (mL/min/1.73m2); Glucose 101 mg/dL (74-106); Potassium 4.4 mmol/L (3.5-5.1); Sodium 139 mmol/L (136-145)
== END 2021-08-29 18:50 | disposition home or self-care (01) ==
LOC: NCHCN 18:49
PROVIDERS: PCP Nurse Practitioner Family; Visit Provider Nurse Practitioner Family
DX: E87.5 Hyperkalemia (principal)
CPT/HCPCS: 80048

== ENCOUNTER → 2022-02-12 18:53 | Outpatient (CLI) | payer OTHER, SELFPAY ==
--- NOTE | 2022-02-12 | DI.RAD_ITS ---
Exam(s) XR SHOULDER LT COMPLETE 2+V EXAM: XR SHOULDER LT COMPLETE 2+V CLINICAL HISTORY: PAIN IN LT SHOULDER--M25.512. TECHNIQUE: 2D digital imaging was performed. Five views. COMPARISON: No exams were available for comparison FINDINGS: BONES: No acute fracture is present. No bony destructive lesion is seen. JOINTS: No dislocation present. Glenohumeral joint and AC joints are unremarkable. Minimal degenera tive changes. SOFT TISSUE: Normal. IMPRESSION: Unremarkable radiographs of the left shoulder. DATA REPOSITORY: RADIATION DOSE DELIVERED:
--- NOTE | 2022-02-12 | DI.RAD_ITS ---
Exam(s) XR FOOT LT COMPLETE EXAM: XR FOOT LT COMPLETE CLINICAL HISTORY: LT FOOT PAIN--M79.672. TECHNIQUE: 2D digital imaging was performed. Three views. COMPARISON: CR LEFT FOOT LIMITED from 03/10/2012 FINDINGS: BONES: No acute fracture is present. No bony destructive lesion is seen. There is a small plantar bill caneal spur. Bones appear normally mineralized JOINTS: No dislocation present. No significant degenerative changes. SOFT TISSUE: Normal. IMPRESSION: Small plantar calcaneal spur. DATA REPOSITORY: RADIATION DOSE DELIVERED:
== END ==
PROVIDERS: PCP Nurse Practitioner Family; Visit Provider Physician Assistant Medical
DX: M77.32 Calcaneal spur, left foot (principal); M25.512 Pain in left shoulder
CPT/HCPCS: 73030; 73630

== ENCOUNTER 2022-02-26 11:53 | Outpatient (REF) | payer OTHER, SELFPAY ==
[2022-02-27 10:05] LABS: CA 125 11 U/mL (<30)
== END 2022-02-26 11:54 | disposition home or self-care (01) ==
LOC: NCHCN 11:53
PROVIDERS: PCP Nurse Practitioner Family; Visit Provider Nurse Practitioner Family
DX: Z85.43 Personal history of malignant neoplasm of ovary (principal)
CPT/HCPCS: 86304

== ENCOUNTER 2022-11-05 14:35 | Outpatient (REF) | payer OTHER, SELFPAY ==
[2022-11-05 22:11] LABS: HCT 40.8 % (36.0-46.0); HGB 13.5 g/dL (11.2-15.7); MCH 29.7 pg (27.0-33.0); MCHC 33.1 % (32.0-36.0); MCV 90 fL (80-95); MPV 12.2 fL (8.0-11.0); Platelet Count 255 10^3/uL (130-400); RBC 4.54 10^6/uL (3.93-5.22); RDW 12.3 % (11.7-14.6); RDW-SD 40.5 fL; WBC 6.91 10^3/uL (4.4-10.8)
[2022-11-05 22:31] LABS: ALT 32 U/L (14-59); AST 15 U/L (15-37); Alkaline Phosphatase 61 U/L (46-116); Anion Gap 7.9 mmol/L (3-11); BUN 23 mg/dL (7-18); Bilirubin, Total 0.4 mg/dL (0.2-1.0); CO2 27.1 mmol/L (21.0-32.0); CREATININE 1.1 mg/dL (0.55-1.02); Calcium 9.1 mg/dL (8.5-10.1); Calculated LDL 163 mg/dL (<100); Chloride 105 mmol/L (98-107); Cholesterol 253 mg/dL (<200); Estimated GFR 52.73 (mL/min/1.73m2); Glucose 108 mg/dL (74-106); HDL Cholesterol 76 mg/dL (40-60); Potassium 4.3 mmol/L (3.5-5.1); Sodium 140 mmol/L (136-145); TSH (W/Ref FT4) 1.42 uIU/mL (0.36-3.74); Total Protein 6.7 g/dL (6.4-8.2); Triglyceride 74 mg/dL (<150)
[2022-11-07 09:52] LABS: CA 125 14 U/mL (<30)
== END 2022-11-05 14:36 | disposition home or self-care (01) ==
LOC: NCHCN 14:35
PROVIDERS: PCP Nurse Practitioner Family; Visit Provider Nurse Practitioner Family
DX: E03.9 Hypothyroidism, unspecified (principal); E78.5 Hyperlipidemia, unspecified; Z85.43 Personal history of malignant neoplasm of ovary
CPT/HCPCS: 80053; 80061; 85027; 86304; 84443

== ENCOUNTER 2022-11-12 01:13 | Outpatient (CLI) | payer OTHER, SELFPAY ==
--- NOTE | 2022-11-12 08:50 | DI.MAMMO_ITS ---
Exam(s) MAMMO SCREENING EXAM: MAMMO SCREENING CLINICAL HISTORY: SCREENING, Z12.39 TECHNIQUE: Mammograms were interpreted according to the usual protocol including computer analysis w [facility] CAD system, tomosynthesis and C-view imaging. COMPARISON: MR MR BREAST SCREENING BILATERAL from 05/06/2021 MR MR BREAST SCREENING W WO CONTRAST BILATERAL from 05/07/2022 Mammograms 2012 through 2021 FINDINGS: The breasts are composed of scattered fibroglandular densities, Breast Density category B. No suspicious masses or suspicious microcalcifications are seen. No skin thickening or abnormal axillary lymph nodes are seen. There has been no significant change from prior exams. IMPRESSION: BI-RADS Category 1, Negative mammogram Yearly screening mammography is recommended. Breast Density - Category B, scattered fibroglandular densities. A negative radiographic report should not delay biopsy if a dominant or clinically suspicious mass is present. Up to ten percent of cancers are not identified on mammography. A negative report may reinforce clinical impression. Adenosis and dense breasts may obscure an underlying neoplasm. False positive reports average 6 to 10%. Patient will receive a letter notifying them of these results.
== END 2022-11-12 01:33 ==
LOC: DI 01:13
PROVIDERS: PCP Nurse Practitioner Family; Visit Provider Nurse Practitioner Family
DX: Z12.31 Encounter for screening mammogram for malignant neoplasm of breast (principal)
CPT/HCPCS: 77063; 77067

== ENCOUNTER 2023-02-26 00:42 | Outpatient (CLI) | payer OTHER, SELFPAY ==
--- NOTE | 2023-02-26 | DI.DEXA_ITS ---
Exam(s) XR DEXA BONE DENSITY W/WO JOSIE EXAM: XR DEXA BONE DENSITY W/WO JOSIE CLINICAL HISTORY: OSTEOPOROSIS, M81.0 TECHNIQUE: COMPARISON: CR XR DEXA BONE DENSITY W/WO JOSIE from 01/26/2020 FINDINGS: Lateral Spine Image: Unremarkable. No compression deformities identified. Left hip: Total T-Score: -1.8. This compares to -1.8 on the prior examination. Total Z-Score: -0.1 T- and Z-scores: Findings are consistent with osteopenia. Lumbar Spine: Total T-Score: -2.3. This compares to -2.7 on the prior examination. Total Z-Score: 0.1 T- and Z-scores: Findings are consistent with osteopenia. Note is made of osteoporosis in the L1 thr ough L3 vertebral bodies. IMPRESSION: Osteoporosis seen in the L1 through L3 vertebral bodies.
== END 2023-02-26 01:02 ==
LOC: DI 00:43
PROVIDERS: PCP Nurse Practitioner Family; Visit Provider Nurse Practitioner Family
DX: Z13.820 Encounter for screening for osteoporosis (principal); M81.0 Age-related osteoporosis without current pathological fracture
CPT/HCPCS: 77080

== ENCOUNTER 2023-05-12 20:28 | Outpatient (REF) | payer OTHER, SELFPAY ==
[2023-05-14 11:17] LABS: CA 125 13 U/mL (<30)
== END 2023-05-12 20:29 | disposition home or self-care (01) ==
LOC: NCHCN 20:28
PROVIDERS: PCP Nurse Practitioner Family; Visit Provider Nurse Practitioner Family
DX: Z15.01 Genetic susceptibility to malignant neoplasm of breast (principal); Z85.43 Personal history of malignant neoplasm of ovary
CPT/HCPCS: 86304

== ENCOUNTER 2023-11-10 14:50 | Outpatient (REF) | payer OTHER, SELFPAY ==
[2023-11-10 16:48] LABS: HCT 38.9 % (36.0-46.0); HGB 12.6 g/dL (11.2-15.7); MCH 30.3 pg (27.0-33.0); MCHC 32.4 % (32.0-36.0); MCV 94 fL (80-95); MPV 11.7 fL (8.0-11.0); Platelet Count 225 10^3/uL (130-400); RBC 4.16 10^6/uL (3.93-5.22); RDW 12.4 % (11.7-14.6); RDW-SD 42.6 fL; WBC 5.53 10^3/uL (4.4-10.8)
[2023-11-10 17:10] LABS: ALT 26 U/L (14-59); AST 11 U/L (15-37); Albumin 3.6 g/dL (3.4-5.0); Alkaline Phosphatase 54 U/L (46-116); Anion Gap 9.5 mmol/L (3-11); BUN 20 mg/dL (7-18); Bilirubin, Total 0.4 mg/dL (0.2-1.0); CO2 27.5 mmol/L (21.0-32.0); Calculated LDL 146 mg/dL (<100); Chloride 108 mmol/L (98-107); Cholesterol 228 mg/dL (<200); Estimated GFR 58.75 (mL/min/1.73m2); Glucose 88 mg/dL (74-106); HDL Cholesterol 71 mg/dL (40-60); Potassium 4.3 mmol/L (3.5-5.1); Sodium 145 mmol/L (136-145); TSH (W/Ref FT4) 1.36 uIU/mL (0.36-3.74); Total Protein 6.1 g/dL (6.4-8.2); Triglyceride 56 mg/dL (<150)
[2023-11-11 18:53] LABS: CA 125 11 U/mL (<30)
== END 2023-11-10 14:51 | disposition home or self-care (01) ==
LOC: NCHCN 14:50
PROVIDERS: PCP Nurse Practitioner Family; Visit Provider Nurse Practitioner Family
DX: E03.9 Hypothyroidism, unspecified (principal); Z85.43 Personal history of malignant neoplasm of ovary; E78.5 Hyperlipidemia, unspecified
CPT/HCPCS: 80053; 80061; 85027; 86304; 84443

== ENCOUNTER 2023-11-19 12:07 | Day surgery (SDC) | payer OTHER, SELFPAY ==
[2023-11-19 12:21] VITALS: BP 134/80; PULSE 62; RESP 16; TEMP 36.3; O2SAT 98
--- NOTE | 2023-11-19 12:34 | W.PM.DSUDISC ---
Date of service: 11/19/23 Time of Service: 14:00 Discharge Plan Disposition Patient Disposition: Home Condition: Stable Discharge Details Attending Provider: Lucas Hickman Primary Care Provider: Helen Simeon Home Meds and New Rx's Prescriptions: Continued ibuprofen 200 mg tablet 200 mg PO Q6H PRN clobetasol 0.05 % ointment 1 applic topical .Twice weekly Premarin 45 GM cream 1 ea Topical PRN PRN levothyroxine 50 mcg Tablet 75 mcg PO DAILY AM Discharge Instructions Additional Instructions: Surgery: Left middle finger trigger release Activity: Protect hand for a few weeks. Gently increase finger motion and hand gripping to prevent stiffness. Recommend elevation to minimize swelling and discomfort. Prescriptions: None Resume home medicines, use [id number] Tylenol (acetaminophen) as needed for mild pain and ibuprofen (Motrin) or naproxen (Aleve) as needed for moderate to severe pain and swelling. Dressings: Leave dressing in place for 3 days. May then remove and leave open to air or cover incision with Band-Aid. May get wet after 5 days. Follow-up: 10-[address] Hickman Please call the office during business hours with any questions or concerns. Discharge Orders Discharge Orders: Discharge Order (Routine); Ordered 11/19/23 Ordered By: Lucas Hickman DS: Diagnosis Discharge Diagnosis (1) Trigger finger, left middle finger: Status: Acute
--- NOTE | 2023-11-19 12:36 | ROE_ITS ---
Date of service: 11/19/23 Time of Service: 13:00 Operative Note Operative Note DATE OF PROCEDURE: 11/19/23 PRE-OP DIAGNOSIS: Left middle trigger finger PROCEDURE: Left middle finger trigger release, CPT# 59345 SURGEON: Lucas Hickman TELEVISION TECHNICIAN: None None ANESTHESIA TYPE: Local By Surgeon Refer to Anesthesia Record ESTIMATED BLOOD LOSS: 1 TOURNIQUET TIME: 0 COMPLICATIONS: None Patient was transported to: same day Patient's condition: stable Indications: Please see complete medical record for details. Procedure Description: In the operating room, the patient was positioned supine on the stretcher. All bony prominences were padded. Preoperative antibiotics were omitted. The correct patient, procedure, and side of the procedure were all verified prior to beginning. Local anesthesia was induced about the site with 10cc of 1% lidocaine containing epinephrine buffered with 1 cc of sodium bicarbonate. The Left hand was prepped and draped in the usual sterile fashion. Proper analgesia was confirmed. A small volar longitudinal approach was made overlying the middle MCP joint. Soft tissues were swept to the sides and retracted to expose the A1 candace. The release was started centrally with a knife and completed at the proximal and distal margins with tenotomy scissors. Care was taken to protect the flexor tendons. The tendons were inspected and healthy. Appropriate flexor tendon excursion was confirmed. The patient readily demonstrated full range of motion of the finger without triggering. The small incision was irrigated and then dried. Hemostasis was appropriate. The incision was closed using 3-0 nylon in a horizontal mattress fashion. Xeroform was applied followed by gauze and the hand was gently compressed with an Saran bandage. The patient tolerated local anesthesia without complication and was transferred out of the operating room in a stable condition.
[2023-11-19] MEDS: Sodium Bicarbonate 50 MEQ/50 ML VIAL (13:07)
[2023-11-19] MEDS: Lidocaine 1% Multi-Dose W/EPI 1/100,000 50 ML VIAL (13:07)
[2023-11-19 13:29] VITALS: BP 129/70; PULSE 59; RESP 16; TEMP 36.4; O2SAT 99
== END 2023-11-19 13:43 | disposition home or self-care (01) ==
PROVIDERS: PCP Nurse Practitioner Family; Visit Provider Student in an Organized Health Care Education/Training Program
PROC: (CPT 26055; principal; 2023-11-19 13:00)
DX: M65.332 Trigger finger, left middle finger (principal)
CPT/HCPCS: 26055; J2004

== ENCOUNTER → 2023-11-25 01:56 | Outpatient (CLI) | payer OTHER, SELFPAY ==
--- NOTE | 2023-11-25 11:55 | DI.MAMMO_ITS ---
Exam(s) MG MAMMO SCREENING EXAM: MAMMO SCREENING CLINICAL HISTORY: SCREENING, Z12.31 TECHNIQUE: Mammograms were interpreted according to the usual protocol including computer analysis w [facility] CAD system, tomosynthesis and C-view imaging. COMPARISON: MR MR BREAST SCREENING W WO CONTRAST BILATERAL from 05/07/2022 MG MG MAMMO SCREENING from 11/12/2022 and exams back to 2019 FINDINGS: The breasts are composed of scattered fibroglandular densities, Breast Density category B. Left breast: No suspicious masses or suspicious microcalcifications are seen. No skin thickening or abnormal axillary lymph nodes are seen. There has been no significant change from prior exams. Right breast: There is a nodular asymmetry in the lateral right breast on the CC view with mild archi tectural distortion. No definite corresponding abnormality is seen on the MLO view. Spot compressio n views and ultrasound are requested further evaluation. No suspicious microcalcifications. IMPRESSION: BI-RADS Category 0 - Assessment Incomplete: Need additional imaging evaluation. Spot compression views and ultrasound are requested further evaluation of area of nodular asymmetry i n the right breast. Breast Density - Category B, scattered fibroglandular densities. A negative radiographic report should not delay biopsy if a dominant or clinically suspicious mass is present. Up to ten percent of cancers are not identified on mammography. A negative report may reinforce clinical impression. Adenosis and dense breasts may obscure an underlying neoplasm. False positive reports average 6 to 10%. Patient will receive a letter notifying them of these results.
== END ==
PROVIDERS: PCP Nurse Practitioner Family; Visit Provider Nurse Practitioner Family
DX: Z12.31 Encounter for screening mammogram for malignant neoplasm of breast (principal); R92.323 Mammographic fibroglandular density, bilateral breasts
CPT/HCPCS: 77063; 77067

== ENCOUNTER → 2023-11-27 01:38 | Outpatient (CLI) | payer OTHER, SELFPAY ==
--- NOTE | 2023-11-27 | DI.US_ITS ---
Exam(s) MG MAMMO SCREEN CALL BACK UNI US BREAST RT LIMITED EXAM: MG MAMMO SCREEN CALL BACK UNI CLINICAL HISTORY: F/U MAMMO, LAT RT NODULAR ASYMMETRY WITH ARCHITECTURAL DISTORTION. TECHNIQUE: Craniocaudal and mediolateral oblique spot compression digital Mammography views of the b reast with Tomosynthesis and breast ultrasound. COMPARISON: Exam from 2014 through recent exam of 25 November 2023. FINDINGS: Mammography/Tomosynthesis: Masses/Architectural Distortion: Decreased prominence of area of nodular asymmetry in the lateral becka ast on the spot compression views. No abnormalities identified on the spot MLO view. Microcalcifictions: No suspicious pleomorphic-type are seen. Skin Thickening/Nipple Retraction: None. Right breast US: Echotexture: Normal appearance of the glandular tissue. Shadowing: No suspicious foci. Cyst: None. Solid lesions: None seen. Ductal dilation: None. . IMPRESSION: 1. No definite evidence of malignancy. Breast MRI recommended for further evaluation. 2. 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 Last MRI we have available is from 2021 . 3. The findings were discussed with the patient on the date of the examination. BI-RADS Category 0 - Assessment Incomplete: Need additional imaging evaluation Breast Density - Category B - Scattered areas of fibroglandular density A mammogram that demonstrates density of C or D indicates the patient's breast tissue is dense. Dense breast tissue is very common and is not abnormal, but dense breast tissue can make it harder to find cancer on a mammogram. Also, dense breast tissue may increase their breast cancer risk. This informa tion about the result of the mammogram report was provided to the patient to raise their awareness. U se this report when you speak with the patient about their risks for breast cancer, which includes th eir family history. At that time, you may recommend for more screening tests (Ultrasound or MRI) as t hey might be useful based on their risk. A negative radiographic report should not delay biopsy if a dominant or clinically suspicious mass is present. Up to ten percent of cancers are not identified on mammography. A negative report may reinforce clinical impression. Adenosis and dense breasts may obscure an underlying neoplasm. False positive reports average 6 to 10%. Patient will receive a letter notifying them of these results.
== END ==
PROVIDERS: PCP Nurse Practitioner Family; Visit Provider Nurse Practitioner Family
DX: Z12.31 Encounter for screening mammogram for malignant neoplasm of breast (principal); R92.8 Other abnormal and inconclusive findings on diagnostic imaging of breast
CPT/HCPCS: 76642; 77063; 77067

== ENCOUNTER → 2024-01-22 13:11 | Outpatient (CLI) | payer OTHER, SELFPAY ==
--- NOTE | 2024-01-22 | DI.RAD_ITS ---
Exam(s) XR HIP LT COMPLETE AP PELVIS EXAM: XR HIP LT COMPLETE AP PELVIS CLINICAL HISTORY: M25.552 Pain in left hip. TECHNIQUE: 2D digital imaging was performed. COMPARISON: No exams were available for comparison FINDINGS: Two views. There is no evidence of pelvic nor hip fracture. There is mild-moderate narrowing of the left hip abilio int space. No osteophytes. Milder narrowing of the right hip joint space noted. Also no osteophyte s. No significant osseous lesions. Sacroiliac joints appear unremarkable and symphysis pubis unrema rkable. No osseous lesions. Sacroiliac joints appear unremarkable. IMPRESSION: Some degenerative narrowing of the hip joint spaces, left more than right. DATA REPOSITORY: RADIATION DOSE DELIVERED:
--- NOTE | 2024-01-22 | DI.RAD_ITS ---
Exam(s) XR KNEE LT 3V AP,LAT,CARON EXAM: XR KNEE LT 3V AP,LAT,CARON CLINICAL HISTORY: M25.569 Pain in knee. TECHNIQUE: 2D digital imaging was performed. COMPARISON: No exams were available for comparison FINDINGS: 3 views No evidence of fracture. Joint effusion noted. There is moderate-advanced narrowing of the medial compartment. No osteophytes. Lateral and patello femoral compartments appear unremarkable. Bone density normal. No osseous lesions IMPRESSION: Significant narrowing of the medial compartment of the left knee. Small joint effusion. DATA REPOSITORY: RADIATION DOSE DELIVERED:
== END ==
PROVIDERS: PCP Nurse Practitioner Family; Visit Provider Physician Assistant Medical
DX: M25.562 Pain in left knee (principal); M16.0 Bilateral primary osteoarthritis of hip
CPT/HCPCS: 73562; 73502

== ENCOUNTER 2024-11-10 22:13 | Outpatient (REF) | payer OTHER, SELFPAY ==
[2024-11-10 22:26] LABS: Abs Immature Grans 0.01 10^3/uL (0.0-0.06); Absolute Basophil Count 0.07 10^3/uL (0.0-0.2); Absolute Eosinophil Count 0.07 10^3/uL (0.0-0.7); Absolute Lymphocyte Count 1.73 10^3/uL (1.2-3.4); Absolute Monocyte Count 0.42 10^3/uL (0.1-0.8); Absolute Neutrophil Count 2.99 10^3/uL (1.2-6.7); Basophils % 1.3 %; Eosinophils % 1.3 %; HCT 37.4 % (36.0-46.0); HGB 11.8 g/dL (11.2-15.7); Immature Grans % 0.2 %; Lymphocytes % 32.7 %; MCH 28.8 pg (27.0-33.0); MCHC 31.6 % (32.0-36.0); MCV 91 fL (80-95); MPV 11.8 fL (8.0-11.0); Monocytes % 7.9 %; Neutrophils % 56.6 %; Platelet Count 259 10^3/uL (130-400); RDW 12.7 % (11.7-14.6); RDW-SD 42.5 fL; WBC 5.29 10^3/uL (4.4-10.8)
[2024-11-10 22:46] LABS: ALT 23 U/L (14-59); AST 15 U/L (15-37); Albumin 3.9 g/dL (3.4-5.0); Alkaline Phosphatase 52 U/L (46-116); Anion Gap 11.9 mmol/L (3-11); BUN 15 mg/dL (7-18); Bilirubin, Total 0.4 mg/dL (0.2-1.0); CO2 25.1 mmol/L (21.0-32.0); CREATININE 0.9 mg/dL (0.55-1.02); Calcium 9.4 mg/dL (8.5-10.1); Calculated LDL 139 mg/dL (<100); Chloride 107 mmol/L (98-107); Cholesterol 245 mg/dL (<200); Estimated GFR 66.26 (mL/min/1.73m2); Glucose 95 mg/dL (74-106); HDL Cholesterol 95 mg/dL (>or=50); Potassium 4.1 mmol/L (3.5-5.1); Sodium 144 mmol/L (136-145); TSH (W/Ref FT4) 1.64 uIU/mL (0.36-3.74); Total Protein 6.5 g/dL (6.4-8.2); Triglyceride 56 mg/dL (<150)
[2024-11-11 19:50] LABS: CA 125 11 U/mL (<30)
== END 2024-11-10 22:14 | disposition home or self-care (01) ==
LOC: NCHCN 22:13
PROVIDERS: PCP Nurse Practitioner Family; Visit Provider Nurse Practitioner Family
DX: Z85.43 Personal history of malignant neoplasm of ovary (principal); E03.9 Hypothyroidism, unspecified; E78.5 Hyperlipidemia, unspecified
CPT/HCPCS: 80053; 80061; 86304; 84443; 85025

== ENCOUNTER 2024-12-06 00:03 | Outpatient (CLI) | payer OTHER, SELFPAY ==
--- NOTE | 2024-12-06 | DI.MAMMO_ITS ---
Exam(s) MAMMO SCREENING EXAM: MAMMO SCREENING CLINICAL HISTORY: BRCA2 gene mutation, Z15.01; Screening TECHNIQUE: Mammograms were interpreted according to the usual protocol including computer analysis w [employer] CAD system, tomosynthesis and C-view imaging. COMPARISON: 2014 through 2023 FINDINGS: The breasts are composed of scattered fibroglandular densities, Breast Density category B. No suspicious masses or suspicious microcalcifications are seen. The previously questioned area of n odular asymmetry in the posterior right breast is less prominent on the current examination.. No skin thickening or abnormal axillary lymph nodes are seen. There has been no significant change from prior exams. IMPRESSION: BI-RADS Category 1, Negative mammogram Yearly screening mammography is recommended. Breast Density - Category B, scattered fibroglandular densities. A negative radiographic report should not delay biopsy if a dominant or clinically suspicious mass is present. Up to ten percent of cancers are not identified on mammography. A negative report may reinforce clinical impression. Adenosis and dense breasts may obscure an underlying neoplasm. False positive reports average 6 to 10%. Patient will receive a letter notifying them of these results.
== END 2024-12-06 00:23 ==
LOC: DI 00:03
PROVIDERS: PCP Nurse Practitioner Family; Visit Provider Nurse Practitioner Family
DX: Z12.31 Encounter for screening mammogram for malignant neoplasm of breast (principal); Z15.01 Genetic susceptibility to malignant neoplasm of breast; R92.323 Mammographic fibroglandular density, bilateral breasts
CPT/HCPCS: 77063; 77067

== ENCOUNTER 2025-05-04 01:48 | Outpatient (CLI) | payer OTHER, SELFPAY ==
--- NOTE | 2025-05-04 | DI.DEXA_ITS ---
Exam(s) XR DEXA BONE DENSITY W/WO JOSIE EXAM: XR DEXA BONE DENSITY W/WO JOSIE CLINICAL HISTORY: SENILE OSTEOPORSIS M81.0 TECHNIQUE: HoloRelayr C densitometer analysis of left hip, lumbar spine and left forearm. Lateral survey image of the thoracic and lumbar spine. COMPARISON: CR XR DEXA BONE DENSITY W/WO JOSIE from 01/26/2020 CR XR DEXA BONE DENSITY W/WO JOSIE from 3and exams back to 2005 FINDINGS: Lateral view of the thoracic and lumbar spine shows no evidence of compression fractures. Bone mineral density measurements of the lumbar spine correspond to a total T- score of -3.1, in the osteoporotic range. This is not significantly changed from 2022 right presents a 6.7 percent decrease from 2004. Bone mineral density measurements of the left hip correspond to a total T-score of -2.0. This is not significantly changed from previous exams.. The femoral neck T-score is -2.5, the borderline of osteoporosis. Theleft forearm bone mineral density measurements correspond to a T-score of the distal 3rd of -1.2, in the osteopenic range. This is not significantly changed from 2016 . The forearm was not analyzed in 2019 or 2022 due to history of fracture. This represents a 6.9 percent decrease when compared with 2009. IMPRESSION: Osteopenia the forearm. Borderline osteoporosis of the left hip. Osteoporosis of the lumbar spine.
== END 2025-05-04 02:08 ==
LOC: DI 01:49
PROVIDERS: PCP Nurse Practitioner Family; Visit Provider Nurse Practitioner Family
DX: M81.0 Age-related osteoporosis without current pathological fracture (principal)
CPT/HCPCS: 77080

== ENCOUNTER 2025-05-11 15:28 | Outpatient (REF) | payer OTHER, SELFPAY ==
[2025-05-11 14:29] LABS: Abs Immature Grans 0.01 10^3/uL (0.0-0.06); HCT 37.4 % (36.0-46.0); HGB 11.7 g/dL (11.2-15.7); Immature Grans % 0.2 %; MCH 26.9 pg (27.0-33.0); MCHC 31.3 % (32.0-36.0); MCV 86 fL (80-95); MPV 11.5 fL (8.0-11.0); Platelet Count 298 10^3/uL (130-400); RBC 4.35 10^6/uL (3.93-5.22); RDW 13.6 % (11.7-14.6); RDW-SD 42.5 fL; WBC 5.85 10^3/uL (4.4-10.8)
[2025-05-11 14:36] LABS: Iron 75 ug/dL (50-170); Total Iron Binding Capacity 400 ug/dL (250-450); Transferrin Sat 19 % (15-50)
[2025-05-11 19:36] LABS: ALT 25 U/L (14-59); AST 14 U/L (15-37); Albumin 3.9 g/dL (3.4-5.0); Alkaline Phosphatase 60 U/L (46-116); Anion Gap 13.9 mmol/L (3-11); BUN 15 mg/dL (7-18); Bilirubin, Total 0.5 mg/dL (0.2-1.0); CO2 25.1 mmol/L (21.0-32.0); Calcium 9.1 mg/dL (8.5-10.1); Calculated LDL 149 mg/dL (<100); Chloride 104 mmol/L (98-107); Cholesterol 248 mg/dL (<200); Estimated GFR 66.26 (mL/min/1.73m2); Ferritin 11 ng/mL (8-252); Glucose 97 mg/dL (74-106); HDL Cholesterol 89 mg/dL (>or=50); Potassium 4.1 mmol/L (3.5-5.1); Sodium 143 mmol/L (136-145); TSH (W/Ref FT4) 1.76 uIU/mL (0.36-3.74); Total Protein 6.7 g/dL (6.4-8.2); Triglyceride 50 mg/dL (<150); Vitamin D 25 Total 23 ng/mL (30-100)
[2025-05-11 22:36] LABS: CA 125 14 U/mL (<30)
== END 2025-05-11 15:29 | disposition home or self-care (01) ==
LOC: NCHCN 15:28
PROVIDERS: PCP Nurse Practitioner Family; Visit Provider Nurse Practitioner Family
DX: E78.5 Hyperlipidemia, unspecified (principal); M81.0 Age-related osteoporosis without current pathological fracture; R51.9 Headache, unspecified; Z15.01 Genetic susceptibility to malignant neoplasm of breast
CPT/HCPCS: 80053; 80061; 82306; 86304; 82728; 83540; 83550; 84443; 85025